=== PATIENT | female | born 1965 ===

== ENCOUNTER 2018-07-17 09:54 | Outpatient (CLI) | payer OTHER | END 2018-07-17 09:55 | disposition home or self-care (01) | LOC: SONOGRAMA 09:54 | DX: E04.1 Nontoxic single thyroid nodule (principal) ==

== ENCOUNTER 2019-01-31 08:03 | Outpatient (CLI) | payer OTHER | END 2019-01-31 08:07 | disposition home or self-care (01) | LOC: SONOGRAMA 08:03 | DX: E04.1 Nontoxic single thyroid nodule (principal) ==

== ENCOUNTER 2024-08-05 15:42 | Outpatient (CLI) | payer OTHER | END 2024-08-05 15:44 | disposition home or self-care (01) | LOC: SONOGRAMA 15:42 | PROVIDERS: ATTEND Pathology Anatomic Pathology & Clinical Pathology | DX: D34 Benign neoplasm of thyroid gland (principal); E07.89 Other specified disorders of thyroid; E03.9 Hypothyroidism, unspecified ==